=== PATIENT | male | born 1990 | race Caucasian/White ===

== ENCOUNTER 2017-08-11 14:19 | Emergency (ER) | payer OTHER ==
--- NOTE | 2017-08-11 15:27 | EDM.PDOC ---
ED HPI GENERAL MEDICAL PROBLEM - General Chief Complaint: Laceration Stated Complaint: LACERATION FOREHEAD Time Seen by Provider: 08/11/17 15:05 Source of Information: Reports: Patient History Limitations: Reports: No Limitations - History of Present Illness INITIAL COMMENTS - FREE TEXT/NARRATIVE: 27 yo male here with a forehead laceration from a gun scope. Tetanus last about 5 yrs ago. Onset: Today Onset Date: 08/11/17 Onset Time: 13:40 Duration: Minutes:, Constant Location: Reports: Face Quality: Reports: Burning Severity: Mild Improves with: Reports: None Worsens with: Reports: None Context: Reports: Trauma Associated Symptoms: Reports: No Other Symptoms - Related Data Allergies Allergy/AdvReac Type Severity Reaction Status Date / Time Sulfa (Sulfonamide Allergy Rash Verified 08/11/17 14:59 Antibiotics) Home Meds: Home Meds Fexofenadine [Angela] 1 tab PO ASDIRECTED PRN 08/11/17 [History] Past Medical History - Past Health History Medical/Surgical History: Denies Medical/Surgical History Social & Family History - Tobacco Use Smoking Status *Q: Never Smoker - Recreational Drug Use Recreational Drug Use: No ED ROS GENERAL - Review of Systems Review Of Systems: See Below Constitutional: Reports: No Symptoms HEENT: Reports: No Symptoms GI/Abdominal: Denies: Nausea Musculoskeletal: Reports: No Symptoms Skin: Reports: Wound Neurological: Denies: Dizziness, Headache Psychiatric: Reports: No Symptoms ED EXAM, SKIN/RASH Exam: See Below Exam Limited By: No Limitations General Appearance: Alert, WD/WN, No Apparent Distress Eye Exam: Bilateral Eye: Normal Inspection, PERRL Ears: Normal External Exam, Normal Canal, Hearing Grossly Normal Nose: Normal Inspection, Normal Mucosa, No Blood Throat/Mouth: Normal Inspection, Normal Lips, Normal Oropharynx, Normal Voice, No Airway Compromise Head: Normocephalic, Other (forehead laceration) Neck: Normal Inspection, Supple, Non-Tender Extremities: Normal Inspection, Normal Range of Motion, Non-Tender Neurological: Alert, Oriented, CN II-XII Intact, Normal Cognition, No Motor/ Sensory Deficits Psychiatric: Normal Affect, Normal Mood Skin: Warm, Dry, Normal Color, No Rash, Wound/Incision Location, Skin: Face Characteristics: Other (eliptical) Associated features: Tenderness Lymphatic: No Adenopathy ED SKIN PROCEDURES - Laceration/Wound Repair Forehead Lac/Wound length In cm: 1.7 Appearance: Subcutaneous Distal NVT: Neuro & Vascular Intact Skin Prep: Saline Exploration/Debridement/Repair: Wound Explored, No Foreign Material Found Closed with: Dermabond Drain Placement: No Sterile Dressing Applied: None Tetanus Status Addressed: Yes Complications: No Course - Vital Signs Last Recorded V/S: Last Vital Signs Temp 36.7 C 08/11/17 14:57 Pulse 96 08/11/17 14:57 Resp 20 08/11/17 14:57 BP 148/98 H 08/11/17 14:57 Pulse Ox 96 08/11/17 14:57 Departure - Departure Time of Disposition: 15:26 Disposition: Home, Self-Care 01 Condition: Good Clinical Impression: Laceration of forehead Qualifiers: Encounter type: initial encounter Qualified Code(s): S01.81XA - Laceration without foreign body of other part of head, initial encounter - Discharge Information Referrals: PCP,None [Primary Care Provider] - Forms: ED Department Discharge Additional Instructions: Allow Dermabond to wear off. Take acetaminophen as needed for pain relief. Recheck for signs of infection.
== END 2017-08-11 15:33 | disposition home or self-care (01) ==
LOC: JP.ED 14:19
DX: S01.81XA Laceration without foreign body of other part of head, initial encounter (principal); Z88.2 Allergy status to sulfonamides; W45.8XXA Other foreign body or object entering through skin, initial encounter
CPT/HCPCS: 12011; 99283-25